=== PATIENT | female | born 1980 | race Two or more races ===

== ENCOUNTER 2019-10-03 14:28 | Emergency (ER) | payer OTHER ==
[~2019-10-03] VITALS: Ht 160 cm; Wt 86.2 kg
[2019-10-03 14:43] VITALS: BP 118/70
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
[2019-10-03] MEDS ORDERED: Methocarbamol 750mg tab ORAL ONE (15:00)
[2019-10-03] MEDS ORDERED: Ketorolac 30mg Inj IM ONE (15:00)
--- NOTE | 2019-10-03 16:02 | NUR ---
ED Nurse Note: Pt reports less amount of pain. Noted sling on left arm from previous ED visit.
[2019-10-03 16:40] VITALS: BP 124/76
--- NOTE | 2019-10-03 17:37 | Diagnostic Imaging Report ---
Indication: Pain, status post trauma Technique: 3 views of the left shoulder Comparison: none Findings: There is calcific tendinosis of the rotator cuff. No acute fractures. No dislocations. The joint spaces are preserved Impression: No acute process
--- NOTE | 2019-10-03 17:54 | Diagnostic Imaging Report ---
EXAM: CT Cervical Spine Without Intravenous Contrast CLINICAL HISTORY: Injury. Neck pain. TECHNIQUE: Axial computed tomography images of the cervical spine without intravenous contrast. CTDI is 8.4 mGy and DLP is 181.1 mGy-cm. One or more of the following dose reduction techniques were used: automated exposure control, adjustment of the mA and/or kV according to patient size, use of iterative reconstruction technique. COMPARISON: None. FINDINGS: Vertebrae: There is straightening and reversal of the curvature of the cervical spine suggestive of muscle spasm. The cervical and visualized thoracic vertebral bodies are maintained in height. There is a normal relationship of C1 and C2. Gentle dextroscoliosis. No acute fracture. Discs/spinal canal/neural foramina: Mild degenerative disc disease. No spinal canal stenosis. Soft tissues: Unremarkable. Lung apices: Lung apices are unremarkable. Other findings: Spinous processes are unremarkable. IMPRESSION: No acute injury to the cervical spine is detected.
--- NOTE | 2019-10-03 17:57 | Diagnostic Imaging Report ---
EXAM: CT Cervical Spine Without Intravenous Contrast CLINICAL HISTORY: Injury. Back pain. TECHNIQUE: Axial computed tomography images of the cervical spine without intravenous contrast. CTDI is 12.4 mGy and DLP is 417.0 mGy-cm. One or more of the following dose reduction techniques were used: automated exposure control, adjustment of the mA and/or kV according to patient size, use of iterative reconstruction technique. COMPARISON: None. FINDINGS: Vertebrae: Alignment of the thoracic spine is within normal limits. Thoracic vertebral bodies are maintained in height. Gentle levoscoliosis of the thoracic spine. Transaxial images of the thoracic spine reveal no significant focal abnormalities. No acute fracture. Discs/spinal canal/neural foramina: No acute findings. No spinal canal stenosis. Other bones/joints: Visualized ribs are unremarkable. Soft tissues: Paraspinal musculature is within normal limits. Lung apices: Minimal subsegmental atelectasis posteriorly at the lung bases. Other findings: Spinous processes are unremarkable. IMPRESSION: 1. Degenerative disc disease of the cervical spine. 2. No evidence of acute injury to the cervical spine.
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
[2019-10-03] MEDS ORDERED: LIDODERM700 M1 TOPIC (18:17)
[2019-10-03] MEDS ORDERED: IBU800 MG PO (18:17)
[2019-10-03] MEDS ORDERED: ROBAXIN-750750 MG PO (18:17)
[2019-10-03 18:29] VITALS: BP 122/78
--- NOTE | 2019-10-03 18:29 | NUR ---
ER DISCHARGE NOTE: Patient is cleared to be discharged per PA, pt is aox4, on room air, with stable vital signs. pt was given dc and prescription instructions, pt was able to verbalize understanding, pt id band removed. pt is able to ambulate with steady gait. pt took all belongings.
== END 2019-10-03 18:29 | disposition home or self-care (01) ==
LOC: EMR 14:52
DX: S16.1XXA Strain of muscle, fascia and tendon at neck level, initial encounter (principal); S43.422A Sprain of left rotator cuff capsule, initial encounter; S46.002A Unspecified injury of muscle(s) and tendon(s) of the rotator cuff of left shoulder, initial encounter; V43.52XA Car driver injured in collision with other type car in traffic accident, initial encounter; Y92.410 Unspecified street and highway as the place of occurrence of the external cause; M50.30 Other cervical disc degeneration, unspecified cervical region
CPT/HCPCS: 72125; 72128; 73030; 96372; 99284; J1885